=== PATIENT | male | born 1975 | race Caucasian/White ===

== ENCOUNTER → 2020-04-15 | Outpatient (CLI) | payer OTHER ==
[~2020-04-15] MED LIST: AMLODIPINE; ATORVASTATIN PO; CALC667C PO; CALCITRIOL PO; DOXAZOSIN PO; FUROSEMIDE PO; INSU100I13 SQ; ONDA4TAB7 SL; SODIUM BIC PO; VITAMIN D2 PO
== END | disposition home or self-care (01) ==
LOC: CVU 08:23
PROVIDERS: ATTEND Internal Medicine Cardiovascular Disease
DX: Z01.810 Encounter for preprocedural cardiovascular examination (principal); I08.3 Combined rheumatic disorders of mitral, aortic and tricuspid valves; I11.9 Hypertensive heart disease without heart failure
CPT/HCPCS: 93306; 93356

== ENCOUNTER → 2020-05-21 | Outpatient (CLI) | payer OTHER ==
[~2020-05-21] MED LIST changes: +REGADENOSON 0.4 MG/5 ML SYRINGE ONE
== END | disposition home or self-care (01) ==
LOC: CFH 13:00
PROVIDERS: ATTEND Internal Medicine Cardiovascular Disease
DX: Z01.810 Encounter for preprocedural cardiovascular examination (principal); I10 Essential (primary) hypertension
CPT/HCPCS: 78452; 93017; A9502; J2785

== ENCOUNTER 2021-01-23 18:52 | Emergency (ER) | payer OTHER ==
[~2021-01-23] VITALS: Ht 170.2 cm; Wt 78.2 kg
[~2021-01-23 18:52] MED LIST changes: -REGADENOSON 0.4 MG/5 ML SYRINGE ONE
[2021-01-23] MEDS ORDERED: MORPHINE SULFATE 4 MG/ML, 1ML ONE ×2 (19:20→20:50)
[2021-01-23] MEDS ORDERED: ONDANSETRON 2MG/ML, 2ML ONE ×2 (19:20→22:45)
[2021-01-23] MEDS ORDERED: ONDANSETRON 2MG/ML, 2ML IVPush ONE ×2 (19:30→23:00)
[2021-01-23] MEDS: MORPHINE SULFATE 4 MG/ML, 1ML IVPush PRN ×2 (19:30→20:55)
--- NOTE | 2021-01-23 19:35 | NUR ---
PIV PLACED BY NUTRITION SERVICES WORKER, LABS DRAWN AND SENT TO LAB WITH LAB SLIP. MEDS ADMIN PER NOV. PT PLACED ON OXYGEN FOR SAFETY. PT CONNECTED TO MONITORING. CALL LIGHT IN REACH. GLADYS AT BEDSIDE FOR ASSESSMENT. PT C/O RUQ ABD PAIN STARTING TODAY ABOUT 1500. SON AT BEDSIDE SURGERY ATTENDANT. Addendum: 01/23/21 at 1939 by [email or web address] ONE SET BLOOD CX COLLECTED WITH PIV INSERTION
--- NOTE | 2021-01-23 19:38 | NUR ---
PT STATES PAIN IS BETTER AFTER MEDS.
[2021-01-23 19:45] LABS: BASOPHILS % (AUTO) 1 % (0-1); EOSINOPHILS % (AUTO) 4 % (1-7); LYMPHOCYTES % (AUTO) 11 % (22-44); MEAN CORPUSCULAR HEMOGLOBIN 31.7 pg (27.5-34.5); MEAN CORPUSCULAR HGB CONC 35.3 g/dL (33.2-36.2); MEAN PLATELET VOLUME 6.2 fL (7.4-10.4); MONOCYTES % (AUTO) 10 % (2-9); NEUTROPHILS % (AUTO) 74 % (42-75); PLATELET COUNT 306 x10^3/uL (130-400); RED BLOOD COUNT 3.84 x10^6/uL (4.38-5.82); RED CELL DISTRIBUTION WIDTH 16.9 % (9.4-14.8)
[2021-01-23 19:46] LABS: MD NO
[2021-01-23 19:56] LABS: ALANINE AMINOTRANSFERASE 19 U/L (12-78); ALBUMIN 2.9 g/dL (3.4-5.0); ANION GAP 14 mmol/L (5-15); CHLORIDE 87 mmol/L (98-107)
[2021-01-23 19:58] LABS: ALKALINE PHOSPHATASE 104 U/L (45-117); BILIRUBIN,TOTAL 0.6 mg/dL (0.2-1.0); TOTAL PROTEIN 6.5 g/dL (6.4-8.2)
--- NOTE | 2021-01-23 20:02 | NUR ---
PER ERMD, OK TO CANCEL UA D/T PT IS UNABLE TO PRODUCE URINE.
--- NOTE | 2021-01-23 20:14 | NUR ---
PT AT CT
[2021-01-23] MEDS ORDERED: OMNIPAQUE 350 MG/ML, 100ML BOTTLE ONE ×2 (20:18→20:19)
[2021-01-23] MEDS ORDERED: PANTOPRAZOLE 40 MG IV ONE (20:22)
--- NOTE | 2021-01-23 20:25 | NUR ---
PT BACK FROM CT. SECOND SET BLOOD CX DRAWN BY PRESSURE TANK OPERATOR.
[2021-01-23] MEDS ORDERED: PANTOPRAZOLE 40 MG IV IVPush ONE (20:30)
--- NOTE | 2021-01-23 20:43 | NUR ---
ERMD AT BEDSIDE TO UPDATE PT ON POC.
--- NOTE | 2021-01-23 20:55 | NUR ---
GLADYS AT BEDSIDE TO COLLECT BODY FLUID. SPECIMEN LABELED AND TAKEN TO LAB BY ERMIman STUART. SPECIMEN COLLECTED IN COMPUTER. PT C/O 06/13 PAIN. SECOND DOSE MORPHINE ADMIN PER
--- NOTE | 2021-01-23 22:42 | NUR ---
PT RESTING ON GURNEY. DENIES PAIN AT THIS TIME. FAMILY AT BEDSIDE.
--- NOTE | 2021-01-23 22:55 | NUR ---
REPORT GIVEN TO RED BARGER.
[2021-01-23 23:14] VITALS: BP 161/81
== END 2021-01-23 23:48 | disposition home or self-care (01) ==
LOC: ED 19:53
DX: N18.9 Chronic kidney disease, unspecified (principal); R10.84 Generalized abdominal pain; R11.2 Nausea with vomiting, unspecified; I12.0 Hypertensive chronic kidney disease with stage 5 chronic kidney disease or end stage renal disease; N18.6 End stage renal disease; E11.22 Type 2 diabetes mellitus with diabetic chronic kidney disease; Z99.2 Dependence on renal dialysis
CPT/HCPCS: 36415; 73130; 74177; 80053; 82042; 83615; 83690; 85025; 87040; 87070; 87205; 89051; 96374; 96375; 96376; 99285; J2270; J2405; Q9967

== ENCOUNTER 2021-03-08 10:25 | Emergency (ER) | payer OTHER ==
[~2021-03-08] VITALS: Ht 154.9 cm; Wt 71.9 kg
--- NOTE | 2021-03-08 10:42 | NUR ---
Pt ambulatory to room with steady gait. Changed into gown, visitor with pt. stoker erector completed.
--- NOTE | 2021-03-08 10:50 | NUR ---
Pt med rec completed and states no meds currently in use other than Losaartan.
--- NOTE | 2021-03-08 11:04 | NUR ---
PA at bedside for assessment.
[2021-03-08] MEDS ORDERED: LOSA100T14 PO (11:06)
--- NOTE | 2021-03-08 11:08 | NUR ---
template reproduction technician at bedside for lab draw. PA notified that UA ordered will not be able to be filled as pt is anuric.
[2021-03-08] MEDS ORDERED: LOSARTAN 100 MG TAB PO SCH (11:20)
[2021-03-08] MEDS ORDERED: ONDANSETRON 2MG/ML, 2ML ONE (11:23)
[2021-03-08] MEDS ORDERED: HYDROmorphone 1 MG/ML, 1ML INJ ONE (11:23)
[2021-03-08] MEDS ORDERED: LABETALOL 5MG/ML, 20ML ONE (11:23)
[2021-03-08 11:27] LABS: BASOPHILS % (AUTO) 1 % (0-1); EOSINOPHILS % (AUTO) 1 % (1-7); LYMPHOCYTES % (AUTO) 10 % (22-44); MEAN CORPUSCULAR HEMOGLOBIN 30.3 pg (27.5-34.5); MEAN CORPUSCULAR HGB CONC 35.6 g/dL (33.2-36.2); MEAN PLATELET VOLUME 6.9 fL (7.4-10.4); MONOCYTES % (AUTO) 10 % (2-9); NEUTROPHILS % (AUTO) 79 % (42-75); PLATELET COUNT 180 x10^3/uL (130-400); RED BLOOD COUNT 3.79 x10^6/uL (4.38-5.82); RED CELL DISTRIBUTION WIDTH 15.6 % (9.4-14.8)
[2021-03-08] MEDS ORDERED: LABETALOL 5MG/ML, 20ML IVPush PRN (11:30)
[2021-03-08] MEDS ORDERED: ONDANSETRON 2MG/ML, 2ML IVPush ONE (11:30)
[2021-03-08] MEDS ORDERED: HYDROmorphone 1 MG/ML, 1ML INJ IVPush PRN (11:30)
[2021-03-08 11:33] LABS: ALBUMIN 2.6 g/dL (3.4-5.0); ANION GAP 11 mmol/L (5-15); CALCIUM 8.2 mg/dL (8.5-10.1); CHLORIDE 90 mmol/L (98-107)
[2021-03-08 11:36] LABS: ALANINE AMINOTRANSFERASE 26 U/L (12-78); ALKALINE PHOSPHATASE 74 U/L (45-117); BILIRUBIN,TOTAL 0.8 mg/dL (0.2-1.0); CREATININE 9.08 mg/dL (0.7-1.3); TOTAL PROTEIN 5.9 g/dL (6.4-8.2)
--- NOTE | 2021-03-08 11:55 | NUR ---
Pt reassessment after multimedia specialist reveals no pain, no nausea and decreased BP at this time. Cozaar requested from pharmacy at this time.
[2021-03-08 11:56] LABS: TROPONIN I 0.037 ng/mL (0.000-0.045)
--- NOTE | 2021-03-08 12:20 | NUR ---
Report given to CHARBEL Galvin and care transferred. RN notified of pending arrival of Cozaar from pharmacy that still needs to be given and that pt is Maltese speaking only
--- NOTE | 2021-03-08 12:21 | NUR ---
ASSUMED CARE OF PT FROM CHARBEL HURST. PT RESTING IN HUSSEIN BARNARD AT THIS TIME, DIONE.
--- NOTE | 2021-03-08 13:14 | NUR ---
BODY FLUID SPECIMEN WALKED DOWN TO LAB. LAB CALLED THIS RN FOR ORDER TO RUN FLUID TO BE PLACED. DR. GARVIN AWARE OF NEED FOR ORDER.
--- NOTE | 2021-03-08 14:09 | NUR ---
PT UPDATED ON POC. PT RESTING IN HUSSEIN BARNARD AT THIS TIME, MONITORING IN PLACE, SON AT BEDSIDE, DIONE.
--- NOTE | 2021-03-08 14:10 | NUR ---
LAB CALLED ON BODY FLUID RESULT, LAB STATES "WE ARE GOING FAST WE CAN".
--- NOTE | 2021-03-08 15:46 | NUR ---
LAB CALLED ABOUT BODY FLUID RESULTS, STATE "WE ARE WORKING ON IT".
[2021-03-08 16:29] VITALS: BP 141/78
== END 2021-03-08 16:59 | disposition home or self-care (01) ==
LOC: ED 13:40
DX: R10.13 Epigastric pain (principal); I10 Essential (primary) hypertension; E11.9 Type 2 diabetes mellitus without complications
CPT/HCPCS: 36415; 74176; 80053; 82042; 83605; 83615; 83690; 84484; 85025; 87040; 87070; 87205; 89051; 93005; 96374; 96375; 99285; J1170; J2405